=== PATIENT | female | born 1985 | race Caucasian/White ===

== ENCOUNTER 2023-12-16 09:15 | Outpatient (CLI) | payer OTHER, SELFPAY ==
[2023-12-16 19:03] LABS: Basophils Percent Auto 0.3 % (0.2-1.2); Eosinophils Percent Auto 0.6 % (0-4.4); Hematocrit 44.1 % (37.0-47.0); Hemoglobin 14.6 g/dL (12.0-15.0); Immature Granulocyte Absolute 0.01 K/mm3 (0.00-0.031); Immature Granulocyte Percent A 0.2 % (0-0.5); Lymphocytes Absolute Auto 2.22 K/mm3 (0.9-3.2); Lymphocytes Percent Auto 33.5 % (18.3-44.2); Mean Corpuscular HGB Conc 33.1 g/dl (32-36); Mean Corpuscular Hemoglobin 27.4 pg (26-34); Mean Corpuscular Volume 82.9 fl (80-100); Mean Platelet Volume 8.5 fl (7.4-10.4); Monocytes Absolute Auto 0.4 K/mm3 (0.1-0.6); Monocytes Percent Auto 6.3 % (2.6-8.5); Neutrophils Absolute Auto 3.9 K/mm3 (1.3-6.7); Neutrophils Percent Auto 59.1 % (45.5-73.1); Platelet Count Result 274 k/mm3 (150-375); Red Blood Count 5.32 M/mm3 (4.2-5.4); Red Cell Distribution Width 13.3 % (11.5-14.5); White Blood Count 6.6 K/mm3 (4.5-10.0)
[2023-12-16 19:07] LABS: Alanine Aminotransferase 16 U/L (6-35); Alkaline Phosphatase 73 U/L (38-126); Anion Gap 10 mmol/L (4-12); Aspartate Amino Transferase 26 U/L (14-36); Bilirubin,Total 0.6 mg/dL (0.2-1.3); Blood Urea Nitrogen 13 mg/dL (7-17); Calcium 10.5 mg/dL (8.4-10.2); Carbon Dioxide 27 mmol/L (22-30); Chloride 106 mmol/L (98-107); Cholesterol 155 mg/dL (0-200); Estimated Glomerular Filt Rate > 60; Glucose 93 mg/dL (65-110); HDL Direct 54 mg/dL; Magnesium 2.2 mg/dL (1.6-2.3); Potassium 4.4 mmol/L (3.4-5.0); Sodium 143 mmol/L (137-145); Triglycerides 94 mg/dL (<150)
[2023-12-16 19:18] LABS: LDL Cholesterol Direct 83 mg/dL
[2023-12-16 20:24] LABS: Vitamin D 25 Hydroxy 33.8 ng/mL
== END 2023-12-16 09:16 | disposition home or self-care (01) ==
LOC: ANHGOSHLAB 09:16
PROVIDERS: PCP Internal Medicine; Visit Provider Nurse Practitioner
DX: G43.909 Migraine, unspecified, not intractable, without status migrainosus (principal); R20.0 Anesthesia of skin; R20.2 Paresthesia of skin; Z13.220 Encounter for screening for lipoid disorders
CPT/HCPCS: 36415; 80053; 80061; 82306; 82607; 83735; 84443; 85025

== ENCOUNTER 2024-04-26 13:55 | Outpatient (CLI) | payer OTHER, SELFPAY ==
--- NOTE | ~2024-04-26 | MM_ITS ---
EXAMINATION: MM screening [facility] BI w cl HISTORY: Screening mammogram TECHNIQUE: Craniocaudal and mediolateral oblique 3-D tomosynthesis images were obtained and synthetic 2-D images were generated. CAD analysis was submitted and interpreted. COMPARISON: No prior mammogram is available for comparison at this institution. BREAST PARENCHYMAL COMPOSITION:Not Dense. There are scattered areas of fibroglandular density. FINDINGS: No suspicious mass, calcification, or architectural distortion are identified in either pineda ast to suggest malignancy. There has been no suspicious interval change. IMPRESSION: No mammographic evidence of malignancy. Recommend routine screening mammography in one year. BI-RADS Category 1: Negative Reviewed, dictated and finalized at location .
== END 2024-04-26 13:56 | disposition home or self-care (01) ==
LOC: MICIMG 13:56
PROVIDERS: PCP Nurse Practitioner; Visit Provider Nurse Practitioner
DX: Z12.31 Encounter for screening mammogram for malignant neoplasm of breast (principal)
CPT/HCPCS: 77063; 77067

== ENCOUNTER 2025-08-01 14:46 | Outpatient (CLI) | payer OTHER, SELFPAY ==
--- NOTE | ~2025-08-01 | MM_ITS ---
EXAMINATION: screening [facility] BI w cl INDICATION: Asymptomatic, referred for screening mammogram COMPARISON: 04/26/2024 TECHNIQUE: Digital Breast Tomosynthesis CC, MLO views of Both breasts were obtained with computer-aided detection to assist in interpretation of the study. FINDINGS: The breasts are heterogeneously dense, which may obscure small masses. There is an asymmetry seen on the cc view in the retroareolar left breast at posterior third. Elsewhere, there are no mammographic features of malignancy. IMPRESSION: 1. Left breast Asymmetry. 2. No evidence of malignancy in the Right breast. RECOMMENDATION: Left breast Diagnostic mammogram with true lateral, appropriate spot compression views and an ultrasound if needed. BI-RADS Category 0: Incomplete: Needs additional imaging evaluation. Reviewed, dictated and finalized at location A. [employer] IMPRESSION: 1. Left breast Asymmetry. 2. No evidence of malignancy in the Right breast. RECOMMENDATION: Left breast Diagnostic mammogram with true lateral, appropriate spot compressio n views and an ultrasound if needed. BI-RADS Category 0: Incomplete: Needs additional imaging evaluation.
== END 2025-08-01 14:47 | disposition home or self-care (01) ==
LOC: MICIMG 14:46
PROVIDERS: PCP Nurse Practitioner; Visit Provider Nurse Practitioner
DX: Z12.31 Encounter for screening mammogram for malignant neoplasm of breast (principal); R92.8 Other abnormal and inconclusive findings on diagnostic imaging of breast
CPT/HCPCS: 77063; 77067